=== PATIENT | female | born 1990 | race Hispanic/Latino ===

== ENCOUNTER 2023-03-25 12:54 | Emergency (ER) | payer SELFPAY, OTHER ==
[~2023-03-25 12:54] MED LIST: Iopamidol-370 76% 500 ML MDV (1 ML CHARGE) ONE
[2023-03-25] MEDS ORDERED: Ketorolac Tromethamine 30 MG/ML VIAL ONE (14:37)
[2023-03-25 14:52] LABS: BHCG - Serum Negative (NEGATIVE); Pregs Control Background? CLEAR/WHITE (CLR/WHITE); Pregs Control Bar Appear? YES (CONTROL BAR)
== END 2023-03-25 17:16 | disposition home or self-care (01) ==
LOC: ERS 12:54
DX: S00.511A Abrasion of lip, initial encounter (principal); M25.512 Pain in left shoulder; M54.2 Cervicalgia; V43.92XA Unspecified car occupant injured in collision with other type car in traffic accident, initial encounter
CPT/HCPCS: 70450; 71260; 72125; 74177; 84703; 96374; J1885; Q9967